=== PATIENT | female | born 1950 | race Caucasian/White ===

== ENCOUNTER 2018-06-05 11:46 | Day surgery (SDC) | payer SELFPAY ==
[~2018-06-05] VITALS: Ht 162.6 cm; Wt 73.1 kg
[~2018-06-05 11:46] MED LIST: ALLO300T PO; ONDA4TAB13 PO; PRED50TA PO
[2018-06-05] MEDS ORDERED: SODIUM CHLORIDE 0.9% 1,000 ML IV SCH (12:18)
[2018-06-05 12:19] VITALS: BP 144/88
[2018-06-05] MEDS ORDERED: FLUMAZENIL 0.1 MG/1 ML, 5ML ONE (13:14)
[2018-06-05] MEDS ORDERED: FENTANYL PF 100 MCG/2ML ONE (13:14)
[2018-06-05] MEDS ORDERED: NALOXONE 1 MG/ML, 2ML ONE (13:14)
[2018-06-05] MEDS ORDERED: MIDAZOLAM 1 MG/ML, 5ML ONE (13:14)
[2018-06-05] MEDS ORDERED: LIDOCAINE-MPF 2%, 2ML ONE (13:28)
== END 2018-06-05 15:35 | disposition home or self-care (01) ==
LOC: OUT 11:46
PROVIDERS: ATTEND Internal Medicine Hematology & Oncology
DX: Z45.2 Encounter for adjustment and management of vascular access device (principal); C83.30 Diffuse large B-cell lymphoma, unspecified site; D64.9 Anemia, unspecified
CPT/HCPCS: 36590; 77001; 99156; 99157; J2250; J3010; J3490; J7030; J2310